=== PATIENT | female | born 1970 | race Hispanic/Latino ===

== ENCOUNTER 2018-04-02 06:53 | Day surgery (SDC) | payer OTHER ==
[~2018-04-02 06:53] MED LIST: ADRENALIN IV ONE; ANCEF/STERILE WATER 2 GM/20 ML IV NR
[2018-04-02] MEDS ORDERED: NACL BACTERIOSTATIC INFILTRATI ONE (08:25)
[2018-04-02] MEDS ORDERED: ZOFRAN IV PRN (08:38)
[2018-04-02] MEDS ORDERED: DILAUDID IV PRN (08:38)
[2018-04-02] MEDS ORDERED: DEMEROL IV PRN (08:38)
[2018-04-02] MEDS ORDERED: LACTATED RINGERS 1,000 ML IV SCH ×2 (09:00→10:00)
[2018-04-02] MEDS ORDERED: NEURONTIN PO NR (09:00)
[2018-04-02] MEDS ORDERED: VERSED IV NR (09:00)
[2018-04-02] MEDS ORDERED: SUBLIMAZE ONE ×2 (09:23→10:04)
[2018-04-02] MEDS ORDERED: DIPRIVAN 10 MG/ML IV ONE (10:04)
[2018-04-02] MEDS ORDERED: XYLOCAINE MPF 2% ONE (10:04)
[2018-04-02] MEDS ORDERED: ADRENALIN IV ONE (10:26)
[2018-04-02] MEDS ORDERED: DECADRON ONE (11:13)
[2018-04-02] MEDS ORDERED: ZOFRAN ONE (11:13)
[2018-04-02] MEDS ORDERED: LACTATED RINGERS 1,000 ML ONE (11:13)
--- NOTE | 2018-04-02 11:28 | Short Stay Summary ---
Short Stay Documentation Date of service: 04/02/18 - History H&P: obtained from office - Allergies and Medications Current Medications: Allergies No Known Allergies Allergy (Verified 03/13/18 13:51) Home Medications Medication Instructions Recorded Confirmed Last Taken Type Omeprazole Magnesium [Prilosec Otc] 40 mg PO DAILY 03/13/18 03/13/18 Unknown History Active Medications Cefazolin Sodium (Ancef/Sterile Water 2 Gm/20 Ml) 2 gm IV PREOP NR Stop: 04/02/18 21:00 Celecoxib (Celebrex) 200 mg PO PREOP NR Stop: 04/02/18 13:00 Last Admin: 04/02/18 08:56 Dose: 200 mg Gabapentin (Neurontin) 300 mg PO PREOP NR Stop: 04/02/18 13:00 Last Admin: 04/02/18 08:56 Dose: 300 mg Hydromorphone HCl (Dilaudid) 0.5 mg IV Q10MIN PRN PRN Reason: Pain , Severe (7-10) Stop: 04/02/18 13:00 Lactated Ringer's (Lactated Ringers) 1,000 mls @ 100 mls/hr IV DIRECT RAZ Last Admin: 04/02/18 08:59 Dose: 100 mls/hr Meperidine HCl (Demerol) 25 mg IV ONCE PRN PRN Reason: Shivering Stop: 04/02/18 13:00 Midazolam HCl (Versed) 2 mg IV PREOP NR Stop: 04/02/18 23:59 Ondansetron HCl (Zofran) 4 mg IV ONCE PRN PRN Reason: Nausea And Vomiting Stop: 04/02/18 13:00 - Brief post op/procedure progress note Date of procedure: 04/02/18 Pre-op diagnosis: persistent right shoulder pain, AC joint arthritis, partial rotator cuff te Post-op diagnosis: other (persistent right shoulder pain, acromioclavicular joint arthritis, partial rotator cuff tear, extensive subacromial bursitis) Procedure: right shoulder arthroscopy, subacromial decompression, distal clavicle excision , debriedement extensive subacromial bursitis, debriedement of partial rotator cuff tear Anesthesia: GETA Findings: as above Surgeon: BERTHA JIMENEZ Estimated blood loss: minimal Pathology: none Condition: stable - Hospital course Hospital course: no periopeartive complications - Disposition Condition at discharge: Good Disposition: DC-01 TO HOME OR SELFCARE Short Stay Discharge Plan Follow up with: WESTON LYONS MD [Primary Care Provider] - 7 Days
--- NOTE | 2018-04-02 12:22 | Operative Report ---
PREOPERATIVE DIAGNOSES: Persistent right shoulder pain, advanced acromioclavicular joint arthritic changes with type 2 acromion causing severe impingement upon the rotator cuff, partial thickness rotator cuff tear. POSTOPERATIVE DIAGNOSES: Persistent right shoulder pain, advanced acromioclavicular joint arthritic changes, type 2 acromion with inferior spurs causing severe impingement upon the rotator cuff, extensive subacromial bursitis, partial thickness bursal-sided rotator cuff tear. OPERATIVE PROCEDURE: Right shoulder arthroscopy, subacromial decompression, distal clavicle excision, debridement of extensive subacromial bursitis, debridement of partial thickness rotator cuff tear. SURGEON: Osman Coburn M.D. LUDLOW MACHINE OPERATOR: None. ANESTHESIA: General plus interscalene block to the operative right upper extremity. PREOPERATIVE ANTIBIOTICS: Ancef 2 grams IV within 1 hour of skin incision. DVT PROPHYLAXIS: Knee high compression stockings and thigh high SCD pumps to bilateral lower extremities. OPERATIVE COMPLICATIONS: None. OPERATIVE HISTORY AND PHYSICAL: This is a 47-year-old female who has had persistent progressive worsening right shoulder pain with marked limitation of normal activities of daily living, which was failed to improve despite extensive nonoperative treatment. MRI scan was performed, which was positive for acromioclavicular joint arthritic changes, there was a partial thickness rotator cuff tear. The patient's MRI findings and diagnosis were discussed at length and making sure that the patient understood that diagnosis. All of her questions were answered. We then discussed treatment alternatives of surgical and nonsurgical including risks and benefits of both. After a long lengthy discussion, the patient opted to proceed with operative intervention. This will entail a right shoulder arthroscopy, subacromial decompression, possible rotator cuff repair and surgery as indicated. The risks of which were discussed to include but not exclusive of infection, blood loss, nerve damage, loss of range of motion and persistent pain. Again, the patient understood, all of her questions were answered, and she wished to proceed with operative intervention. DESCRIPTION OF PROCEDURE: The patient was seen in the preoperative holding area at which point informed consent was reviewed and appropriate right upper extremity was identified and then marked. Anesthesia was then performed an interscalene block to the right upper extremity. After confirmation of adequate analgesia of the right upper extremity, the patient was then brought back to the operating room and placed supine on the standard operating room table with the beach chair positioner already in place. Once general anesthesia was administered, and endotracheal tube was inserted. After confirmation of appropriate general anesthesia and checking appropriate placement on the endotracheal tube, we then made sure that all bony prominences were well padded, that there were no wrinkles in the compression stockings on bilateral lower extremities and SCD pumps were applied to the bilateral lower extremities. A pillow was placed beneath the posterior aspect of bilateral thighs, placed in slight flexion at the hips and knees making sure the popliteal fossa was free and clear. The patient was then sat up in the beach chair position using the beach chair position, which was already in place. Her head was secured in a nice neutral position. The well left arm was secured in neutral position on the patient's side with the aid of the well arm warren. Examination of the right upper extremity showed it to be full range of motion without any evidence of instability. Upon examination under anesthesia, the right upper extremity was then prepped and draped in the usual sterile fashion. After prepping and draping, a timeout was called and appropriate right upper extremity was identified which again had been marked in preop holding area. I began the procedure by first making a standard posterior portal with a #15 blade. Once the portal was established, the cannula with the blunt trocar was inserted into the intra-articular aspect of the glenohumeral joint. This went without difficulty or damage to articular cartilage. Once in place, endoscopic camera was immediately placed in the anterior aspect of the joint, established anterior portal by first inserting an 18-gauge spinal needle between the subscap and biceps tendons under direct arthroscopic visualization. Once confirmed to be in appropriate position, a 15 blade was then used to established anterior portal. Once the portal was established, a blunt trocar was inserted to widen the portal site. Following the arthroscopic probe, we began a diagnostic arthroscopy in the anterior aspect of the shoulder joint. The patient had a normal subscapularis tendon, which was seen to be stable when probed and normal middle glenohumeral ligament. Inspection of the anterior, superior and posterior labrum showed this to be intact and stable when probed. There was normal articular cartilage of the glenohumeral joint. There was a negative drive-through sign. There was a normal bare area without Hill-Sachs lesion. Inspection of the axillary recess showed this to be free and clear of all loose bodies. Inspection of the biceps tendon showed it to be intact. An x-ray showed there was normal relation. The articular side of the rotator cuff was seen to be intact and stable when probed. The arthroscopic pump was then turned on to make sure there was good hemostasis. Once this was confirmed, the extraneous fluid was suctioned from the glenohumeral joint using the arthroscopic cannula. Following this, all the arthroscopic instrumentation was removed. The arthroscopic camera was then placed in the subacromial space. Once in the subacromial space, we saw there was severe extensive subacromial bursitis. A third incision was made in the lateral aspect of the shoulder in line with the distal clavicle away from axillary nerve and following this, we debrided the extensive subacromial bursitis using a 4.0 meniscal shaver. Hemostasis was achieved with the Arthrocare ablation wand. Once completed, the arm was placed through a range of motion under direct arthroscopic visualization with sudden severe impingement of the rotator cuff upon undersurface of the acromion and the distal clavicle. The soft tissue was then removed from the undersurface of the acromion using the Arthrocare ablation wand. Once completed using a 4.0 hooded barrel bur, we carried subacromial decompression in standard fashion with an inferior superior, posterior anterior making sure not to leave any residual anterior hook. We turned our attention to distal clavicle, which was also seen to be arthritic and contributing to impingement. We then performed a distal clavicle excision to a depth of approximately 6 mm using the 4.0 hooded barrel bur. Once completed, the arm was again placed through a full range of motion throughout. There was no further impingement of the cuff on the undersurface of the acromion or the distal clavicle. Inspection of the bursal side rotator cuff showed to be partial thickness tear with supraspinatus tendon encompassing approximately 10% of the width of tendon, which was gently debrided using 4.0 meniscal shaver. Following this arthroscopic pump was turned off and made sure there was good hemostasis. Once this was confirmed, the extraneous fluid was suctioned from the subacromial space using arthroscopic cannula. Followed this, all arthroscopic instrumentation was removed. The 3 portal sites were closed with 3-0 nylon in simple fashion. Adaptic, 4 x 4, ABD, Medipore, the Cryo/Cuff blanket with the small abduction sling was applied. The patient was sat down from the beach chair in to the supine position, was awakened from general anesthesia without complications and taken to recovery room in stable condition. Standard postop orders were written. JOB# [id number] EDUARDA/RAMIRO
[2018-04-02] MEDS ORDERED: PERCOCET 5/325 PO SCH (13:45)
[2018-04-02 19:11] VITALS: BP 129/65
--- NOTE | 2018-04-02 19:39 | Anesthesia Day of Surgery ---
Anesthesia Day of Surgery - Day of Surgery Patient Examined: Yes Patient H&P Reviewed: Yes Patient is NPO: Yes
--- NOTE | 2018-04-02 19:40 | Anesthesia Consultation ---
Anesthesia Consult and Med Hx Date of service: 04/02/18 - Airway Anesthetic Teeth Evaluation: Good ROM Head & Neck: Adequate Mental/Hyoid Distance: Adequate Mallampati Class: Class II Intubation Access Assessment: Probably Good - Pulmonary Exam CTA: Yes - Cardiac Exam Cardiac Exam: RRR - Pre-Operative Health Status ASA Pre-Surgery Classification: ASA2 Proposed Anesthetic Plan: General - Pulmonary Hx Smoking: Yes (1 PPD X 30 YRS) Hx Pneumonia: Yes (hx left lung 2010) Hx Sleep Apnea: No (SHARIFA PRE SCREEN NEGATIVE) - Cardiovascular System Hx Hypertension: No Hx Valvular Heart Disease: Yes ("LEAKY HEART VALVE") - Central Nervous System Hx Back Pain: Yes (NECK / BACK PAIN) - Gastrointestinal Hx Gastroesophageal Reflux Disease: (controlled on meds) - Hematic Hx Anemia: Yes - Other Systems Hx Cancer: No
== END 2018-04-02 15:04 | disposition home or self-care (01) ==
LOC: OR 06:53
PROVIDERS: ATTEND Orthopaedic Surgery
DX: S46.011A Strain of muscle(s) and tendon(s) of the rotator cuff of right shoulder, initial encounter (principal); M25.811 Other specified joint disorders, right shoulder; E78.00 Pure hypercholesterolemia, unspecified; D64.9 Anemia, unspecified; F17.210 Nicotine dependence, cigarettes, uncomplicated; K21.9 Gastro-esophageal reflux disease without esophagitis; Z90.710 Acquired absence of both cervix and uterus; Z98.890 Other specified postprocedural states; Z87.01 Personal history of pneumonia (recurrent); Z79.899 Other long term (current) drug therapy; Z95.2 Presence of prosthetic heart valve; X58.XXXA Exposure to other specified factors, initial encounter; Y93.89 Activity, other specified; Y92.89 Other specified places as the place of occurrence of the external cause
CPT/HCPCS: 29823; 29824; 29826; 29827; J0171; J0690; J1100; J2250; J2405; J2704; J3010; J7120